=== PATIENT | female | born 1990 | race Native Hawaiian/Other Pacific Islander ===

== ENCOUNTER 2021-03-26 14:23 | Outpatient (CLI) | payer OTHER ==
[~2021-03-26] VITALS: Ht 157.5 cm; Wt 84.8 kg
== END 2021-03-26 22:26 | disposition home or self-care (01) ==
LOC: INF 14:23
PROVIDERS: ATTEND Family Medicine
DX: Z23 Encounter for immunization (principal); U07.1 COVID-19
CPT/HCPCS: 96365; Q0239; Q0245